=== PATIENT | male | born 1975 | race Caucasian/White ===

== ENCOUNTER 2023-08-25 09:38 | Emergency (ER) | payer OTHER ==
[~2023-08-25] VITALS: Ht 193 cm; Wt 138.6 kg
[2023-08-25] MEDS ORDERED: Ondansetron 4 MG/2 ML VIAL IV ONE (09:45)
[2023-08-25] MEDS ORDERED: LR 1,000 ML IV ONE (09:45)
[2023-08-25 10:08] LABS: COLLECTION METHOD CLEAN CATCH
[2023-08-25 10:11] LABS: BASO % 0.4 % (0.0-2.0); EOS # 0.1 K/mm3 (0.0-0.7); EOS % 1.4 % (0.0-4.0); GRAN # 7.6 K/mm3 (1.4-6.5); GRAN % 78.2 % (42.2-75.2); HEMOGLOBIN 15.6 g/dl (13.5-18.0); LYMPH # 1.3 K/mm3 (1.2-3.4); LYMPH % 13.4 % (20.0-51.0); MEAN CELL VOLUME 89 fl (80.0-100.0); MEAN CORPUSCULAR HEMOGLOBIN 31 pg (27-31); MEAN CORPUSCULAR HGB CONC 35 g/dl (33.0-37.0); MEAN PLATELET VOLUME 10.4 fl (7.4-10.4); MONO # 0.6 K/mm3 (0.1-0.6); MONO % 6.4 % (1.7-9.3); PLATELET COUNT 171 K/mm3 (130-400); RED BLOOD COUNT 5.06 M/mm3 (4.20-5.60); REDCELL DISTRIBUTION WIDTH-CV 12.8 % (11.5-14.5)
[2023-08-25] MEDS ORDERED: Iohexol 300 - 100 ML VIAL IV ONE (10:14)
[2023-08-25] MEDS ORDERED: NS 100 ML IV SCH (10:14)
[2023-08-25 10:30] LABS: URINE APPEARANCE CLEAR (CLEAR/HAZY); URINE BLOOD NEGATIVE (NEGATIVE); URINE COLOR YELLOW (YELLOW); URINE GLUCOSE NEGATIVE (NEGATIVE); URINE KETONE NEGATIVE (NEGATIVE); URINE NITRATE NEGATIVE (NEGATIVE); URINE PROTEIN(semi-quant) TRACE (NEGATIVE)
[2023-08-25] MEDS ORDERED: Cefuroxime 250 MG TAB PO ONE (10:45)
[2023-08-25 11:00] LABS: ALBUMIN 4.1 g/dL (3.5-5.0); BILIRUBIN,TOTAL 1.9 mg/dL (0.2-1.2); C-REACTIVE PROTEIN 7.49 mg/dL (0.00-0.50); CALCIUM 9.7 mg/dL (8.4-10.2); CREATININE, serum 1.24 mg/dL (0.72-1.25); POTASSIUM 3.9 mEq/L (3.5-4.5)
[2023-08-25] MEDS ORDERED: ZYLOPRIM 100MG100 MG PO (12:07)
[2023-08-25] MEDS ORDERED: COZAAR 50MG50 MG/TAB PO (12:08)
[2023-08-25] MEDS ORDERED: ADVIL200 MG PO (12:09)
--- NOTE | 2023-08-25 12:52 | NUR ---
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 She informed SW his is out of town until tomorrow. RN informed SW pt needed an Urology and Surgical consult, but admission was reccomended. 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 He reports the contact listed, Marquita is an ex-girlfriend and not involved. He advised he has no other close family or friends. He states he knew no one at work he would trust overnight with his child. He reports to have called his neighbor, but they are leaving out of town tonight. Pt questioned the plan of care and if he could just come back as he was informed he will not need surgery. DEMOND spoke with KAYDEN Jerome and Dr. Pittman who advised they could proceed with oral antibiotics then as if [facility] came back to [facility], they would be closed in the evening. advised patient would be waiting in the ER for 2-3 hours if he came back [facility] for an IV dose of ABOX. Pt was agreeable to returning home and continuing oral ABOX. He was instructed to return if he felt it was not getting better. No further questions or SW needs identified.
[2023-08-25 14:24] VITALS: BP 119/70; PULSE 89; TEMP 98.7
== END 2023-08-25 14:24 | disposition home or self-care (01) ==
LOC: COL.ER 09:38
PROVIDERS: Family Medicine
DX: L03.314 Cellulitis of groin (principal); Z87.891 Personal history of nicotine dependence
CPT/HCPCS: J2405; J2543; J3370; J7050; J7120; Q9967